=== PATIENT | female | born 1935 | race Caucasian/White ===

== ENCOUNTER 2021-07-01 15:43 | Inpatient (IN) | payer OTHER ==
[2021-07-01 16:07] VITALS: BMI 42.1
[2021-07-01 17:02] LABS: VENOUS BASE EXCESS -6.2 mmol/L (-2-2); VENOUS O2 SATURATION 79.3 % (70-80); VENOUS PCO2 31.8 mmHg (38-52); VENOUS PH 7.375 (7.310-7.410)
[2021-07-01 17:05] LABS: BASO % 0.2 % (0-2.0); EOS % 0.4 % (0-4.5); HEMATOCRIT 17.9 % (32.4-45.2); MCH 31.3 pg (25.7-33.7); MEAN CELL VOLUME 94.8 fl (80-96); MEAN PLT VOLUME 7.6 fl (7.5-11.1); MONO % 3.6 % (3.8-10.2); NEUT % 78.8 % (42.8-82.8); PLATELET COUNT 160 10^3/uL (134-434); RBC 1.89 M/mm3 (3.60-5.2); RDW 17.3 % (11.6-15.6); WHITE BLOOD COUNT 10.5 K/mm3 (4.0-10.0)
[2021-07-01 17:16] LABS: INR 1.21 (0.83-1.09); PROTHROMBIN TIME (PATIENT) 13.9 SEC (9.7-13.0)
[2021-07-01 17:17] LABS: HEMOGLOBIN 5.9 GM/dL (10.7-15.3)
[2021-07-01 17:19] LABS: ACTIVATED PTT 24.3 SECONDS (25.2-36.5)
[2021-07-01 17:26] LABS: ALBUMIN 2.1 g/dl (3.4-5.0); CALCIUM 8.2 mg/dL (8.5-10.1)
[2021-07-01 17:27] LABS: MAGNESIUM 2.1 mg/dL (1.8-2.4)
[2021-07-01 17:31] LABS: BILIRUBIN,TOTAL 0.7 mg/dL (0.2-1)
[2021-07-01 17:40] LABS: BLOOD UREA NITROGEN 40.5 mg/dL (7-18)
[2021-07-01] MEDS ORDERED: POTASSIUM CHLORIDE TABS 20 MEQ TABLET.ER (FP) PO ONE ×2 (18:02→18:08)
[2021-07-01 21:43] LABS: N-TERMINAL BNP 3264.3 pg/ml (5-450)
[2021-07-01] MEDS ORDERED: PANTOPRAZOLE SODIUM 40 MG VIAL IVPUSH ONE (22:53)
[2021-07-01] MEDS ORDERED: PANTOPRAZOLE SODIUM 40 MG VIAL ONE (23:19)
[2021-07-02 08:12] LABS: BASO % 0.1 % (0-2.0); EOS % 0.3 % (0-4.5); HEMATOCRIT 27.8 % (32.4-45.2); HEMOGLOBIN 9.7 GM/dL (10.7-15.3); LYMPH % 15.8 % (8-40); MCH 31.7 pg (25.7-33.7); MEAN CELL VOLUME 90.7 fl (80-96); MEAN PLT VOLUME 7.4 fl (7.5-11.1); MONO % 3.4 % (3.8-10.2); NEUT % 80.4 % (42.8-82.8); PLATELET COUNT 130 10^3/uL (134-434); RBC 3.07 M/mm3 (3.60-5.2); RDW 16.7 % (11.6-15.6)
[2021-07-02 08:19] LABS: INR 1.21 (0.83-1.09)
[2021-07-02 08:22] LABS: ACTIVATED PTT 28.1 SECONDS (25.2-36.5)
[2021-07-02] MEDS ORDERED: FUROSEMIDE 40 MG/4 ML INJECTABLE VIAL IVPUSH ONE (08:34)
[2021-07-02 08:35] LABS: ALBUMIN 1.8 g/dl (3.4-5.0); CALCIUM 7.8 mg/dL (8.5-10.1)
[2021-07-02 08:36] LABS: MAGNESIUM 2.1 mg/dL (1.8-2.4)
[2021-07-02 08:38] LABS: CREATININE 0.9 mg/dL (0.55-1.3)
[2021-07-02 08:39] LABS: BILIRUBIN,TOTAL 0.8 mg/dL (0.2-1); TOT PROT 5.7 g/dl (6.4-8.2)
[2021-07-02] MEDS ORDERED: FUROSEMIDE 40 MG/4 ML INJECTABLE VIAL ONE (08:52)
[2021-07-02] MEDS ORDERED: PANTOPRAZOLE 40 MG TABLET ONE (08:54)
[2021-07-02] MEDS ORDERED: LOSARTAN POTASSIUM 50 MG TABLET ONE (08:54)
[2021-07-02] MEDS ORDERED: HYDROCHLOROTHIAZIDE 12.5 MG CAPSULE (FP) PO SCH (10:00)
[2021-07-02] MEDS ORDERED: PANTOPRAZOLE 40 MG TABLET PO SCH (10:00)
[2021-07-02] MEDS: LOSARTAN POTASSIUM 50 MG TABLET PO SCH (10:24)
[2021-07-02 14:36] LABS: HEMATOCRIT 29.2 % (32.4-45.2); MCH 31.5 pg (25.7-33.7); MCHC 34.2 g/dl (32.0-36.0); MEAN CELL VOLUME 92.1 fl (80-96); MEAN PLT VOLUME 7.4 fl (7.5-11.1); PLATELET COUNT 137 10^3/uL (134-434); RBC 3.17 M/mm3 (3.60-5.2); RDW 17.3 % (11.6-15.6); WHITE BLOOD COUNT 9.7 K/mm3 (4.0-10.0)
[2021-07-02] MEDS ORDERED: PANTOPRAZOLE SODIUM 40 MG VIAL ONE (21:41)
[2021-07-02] MEDS: PANTOPRAZOLE SODIUM 40 MG VIAL IVPUSH SCH (21:54)
[2021-07-02 22:12] LABS: HEMATOCRIT 28.4 % (32.4-45.2); HEMOGLOBIN 9.6 GM/dL (10.7-15.3); MCH 31.2 pg (25.7-33.7); MCHC 33.7 g/dl (32.0-36.0); MEAN CELL VOLUME 92.6 fl (80-96); MEAN PLT VOLUME 7.9 fl (7.5-11.1); PLATELET COUNT 148 10^3/uL (134-434); RBC 3.07 M/mm3 (3.60-5.2); RDW 17.1 % (11.6-15.6); WHITE BLOOD COUNT 9.9 K/mm3 (4.0-10.0)
[2021-07-02] MEDS ORDERED: PANTOPRAZOLE SODIUM 40 MG VIAL IVPUSH ONE (22:53)
[2021-07-03 08:13] LABS: BASO % 0.1 % (0-2.0); EOS % 0.3 % (0-4.5); HEMATOCRIT 27.1 % (32.4-45.2); HEMOGLOBIN 9.3 GM/dL (10.7-15.3); LYMPH % 11.3 % (8-40); MCH 31.3 pg (25.7-33.7); MCHC 34.2 g/dl (32.0-36.0); MEAN CELL VOLUME 91.6 fl (80-96); MEAN PLT VOLUME 7.6 fl (7.5-11.1); MONO % 2.6 % (3.8-10.2); NEUT % 85.7 % (42.8-82.8); PLATELET COUNT 144 10^3/uL (134-434); RBC 2.96 M/mm3 (3.60-5.2); RDW 17.1 % (11.6-15.6)
[2021-07-03] MEDS: LOSARTAN POTASSIUM 50 MG TABLET PO SCH (09:11)
[2021-07-03] MEDS: PANTOPRAZOLE SODIUM 40 MG VIAL IVPUSH SCH ×2 (09:11→21:57)
[2021-07-03] MEDS: KCL 10 MEQ IVPB 10 MEQ/100 ML INFUS.BAG IVPB SCH ×2 (13:44→15:44)
[2021-07-03 14:02] LABS: HEMATOCRIT 27.9 % (32.4-45.2); HEMOGLOBIN 9.7 GM/dL (10.7-15.3); MCH 31.6 pg (25.7-33.7); MCHC 34.6 g/dl (32.0-36.0); MEAN CELL VOLUME 91.3 fl (80-96); MEAN PLT VOLUME 7.1 fl (7.5-11.1); PLATELET COUNT 140 10^3/uL (134-434); RBC 3.06 M/mm3 (3.60-5.2); WHITE BLOOD COUNT 10.8 K/mm3 (4.0-10.0)
[2021-07-04 07:52] LABS: BASO % 0.2 % (0-2.0); EOS % 0.2 % (0-4.5); HEMATOCRIT 27.5 % (32.4-45.2); HEMOGLOBIN 9.6 GM/dL (10.7-15.3); MCH 31.9 pg (25.7-33.7); MCHC 34.7 g/dl (32.0-36.0); MEAN CELL VOLUME 91.7 fl (80-96); MEAN PLT VOLUME 7.5 fl (7.5-11.1); MONO % 2.6 % (3.8-10.2); PLATELET COUNT 125 10^3/uL (134-434); RDW 16.9 % (11.6-15.6); WHITE BLOOD COUNT 10.5 K/mm3 (4.0-10.0)
[2021-07-04 08:14] LABS: ALBUMIN 1.6 g/dl (3.4-5.0); CALCIUM 7.7 mg/dL (8.5-10.1)
[2021-07-04 08:16] LABS: BLOOD UREA NITROGEN 35.3 mg/dL (7-18); MAGNESIUM 1.8 mg/dL (1.8-2.4)
[2021-07-04 08:19] LABS: BILIRUBIN,TOTAL 0.9 mg/dL (0.2-1); PHOSPHOROUS 3.6 mg/dL (2.5-4.9); TOT PROT 5.6 g/dl (6.4-8.2)
[2021-07-04] MEDS: PANTOPRAZOLE SODIUM 40 MG VIAL IVPUSH SCH ×2 (09:38→21:34)
[2021-07-04] MEDS: LOSARTAN POTASSIUM 50 MG TABLET PO SCH (09:38)
[2021-07-04] MEDS ORDERED: POTASSIUM CHLORIDE TABS 20 MEQ TABLET.ER (FP) PO ONE (12:15)
[2021-07-04] MEDS ORDERED: methylPREDNISolone 4 MG TABLET PO ONE (22:00)
[2021-07-05 08:39] LABS: BASO % 0.1 % (0-2.0); EOS % 0.1 % (0-4.5); HEMATOCRIT 29.1 % (32.4-45.2); HEMOGLOBIN 9.6 GM/dL (10.7-15.3); LYMPH % 9.1 % (8-40); MCH 30.8 pg (25.7-33.7); MCHC 33.1 g/dl (32.0-36.0); MEAN CELL VOLUME 93.1 fl (80-96); MEAN PLT VOLUME 7.8 fl (7.5-11.1); MONO % 1.1 % (3.8-10.2); NEUT % 89.6 % (42.8-82.8); PLATELET COUNT 126 10^3/uL (134-434); RBC 3.12 M/mm3 (3.60-5.2); RDW 16.8 % (11.6-15.6); WHITE BLOOD COUNT 11.5 K/mm3 (4.0-10.0)
[2021-07-05 09:00] LABS: BLOOD UREA NITROGEN 38.6 mg/dL (7-18)
[2021-07-05] MEDS ORDERED: methylPREDNISolone 4 MG TABLET PO ONE (09:00)
[2021-07-05 09:01] LABS: ALBUMIN 1.7 g/dl (3.4-5.0)
[2021-07-05 09:05] LABS: BILIRUBIN,TOTAL 0.6 mg/dL (0.2-1)
[2021-07-05 09:07] LABS: CREATININE 1.1 mg/dL (0.55-1.3)
[2021-07-05] MEDS: PANTOPRAZOLE SODIUM 40 MG VIAL IVPUSH SCH ×2 (10:06→22:13)
[2021-07-05] MEDS: LOSARTAN POTASSIUM 50 MG TABLET PO SCH (10:06)
[2021-07-05] MEDS ORDERED: predniSONE 20 MG TABLET (UD) PO ONE (22:00)
[2021-07-06] MEDS ORDERED: predniSONE 20 MG TABLET (UD) PO ONE (04:00)
[2021-07-06 07:03] LABS: BASO % 0.2 % (0-2.0); HEMATOCRIT 26.9 % (32.4-45.2); LYMPH % 8.6 % (8-40); MCH 31.3 pg (25.7-33.7); MCHC 33.5 g/dl (32.0-36.0); MEAN CELL VOLUME 93.4 fl (80-96); MEAN PLT VOLUME 7.8 fl (7.5-11.1); NEUT % 88.2 % (42.8-82.8); PLATELET COUNT 123 10^3/uL (134-434); RBC 2.88 M/mm3 (3.60-5.2); RDW 16.8 % (11.6-15.6); WHITE BLOOD COUNT 8.7 K/mm3 (4.0-10.0)
[2021-07-06 07:19] LABS: CALCIUM 7.7 mg/dL (8.5-10.1)
[2021-07-06 07:20] LABS: ALBUMIN 1.7 g/dl (3.4-5.0); BLOOD UREA NITROGEN 48.4 mg/dL (7-18)
[2021-07-06 07:23] LABS: CREATININE 1.2 mg/dL (0.55-1.3)
[2021-07-06 07:24] LABS: BILIRUBIN,TOTAL 0.2 mg/dL (0.2-1)
[2021-07-06 07:25] LABS: TOT PROT 5.8 g/dl (6.4-8.2)
[2021-07-06] MEDS: predniSONE 20 MG TABLET (UD) PO ONE ×2 (10:39→11:40)
[2021-07-06] MEDS: PANTOPRAZOLE SODIUM 40 MG VIAL IVPUSH SCH ×3 (10:39→22:18)
[2021-07-06] MEDS: LOSARTAN POTASSIUM 50 MG TABLET PO SCH (10:40)
[2021-07-06] MEDS ORDERED: SODIUM CHLORIDE 500 ML IV ONE (14:25)
[2021-07-07 06:39] LABS: HEMATOCRIT 27.4 % (32.4-45.2); HEMOGLOBIN 8.8 GM/dL (10.7-15.3); MCH 30.8 pg (25.7-33.7); MCHC 32.3 g/dl (32.0-36.0); MEAN CELL VOLUME 95.2 fl (80-96); MEAN PLT VOLUME 7.7 fl (7.5-11.1); PLATELET COUNT 125 10^3/uL (134-434); RBC 2.87 M/mm3 (3.60-5.2); WHITE BLOOD COUNT 11.5 K/mm3 (4.0-10.0)
[2021-07-07 06:55] LABS: ALBUMIN 1.8 g/dl (3.4-5.0); BLOOD UREA NITROGEN 57.8 mg/dL (7-18); CALCIUM 7.8 mg/dL (8.5-10.1); MAGNESIUM 2.4 mg/dL (1.8-2.4)
[2021-07-07 06:58] LABS: CREATININE 1.2 mg/dL (0.55-1.3); PHOSPHOROUS 3.3 mg/dL (2.5-4.9)
[2021-07-07 06:59] LABS: TOT PROT 5.8 g/dl (6.4-8.2)
[2021-07-07 07:00] LABS: BILIRUBIN,TOTAL 0.2 mg/dL (0.2-1)
[2021-07-07] MEDS: LOSARTAN POTASSIUM 50 MG TABLET PO SCH (09:26)
[2021-07-07] MEDS: PANTOPRAZOLE SODIUM 40 MG VIAL IVPUSH SCH ×2 (09:26→21:47)
[2021-07-07 10:41] LABS: ANISOCYTOSIS 3+; MACROCYTOSIS 0; OVALOCYTE 2+; TEAR DROP CELLS 1+
[2021-07-07] MEDS ORDERED: SODIUM CHLORIDE 500 ML IV ONE (12:45)
[2021-07-07] MEDS ORDERED: MIDAZOLAM HCL 2 MG/2 ML SINGLE DOSE VIAL IVPUSH ONE (12:45)
[2021-07-08 08:07] LABS: CARCINOEMBRYONIC ANTIGEN 7.4 ng/mL (0.0-4.7)
[2021-07-08] MEDS: PANTOPRAZOLE SODIUM 40 MG VIAL IVPUSH SCH ×2 (10:01→21:34)
[2021-07-08] MEDS: LOSARTAN POTASSIUM 50 MG TABLET PO SCH (10:01)
[2021-07-08 11:45] LABS: HEMATOCRIT 26.1 % (32.4-45.2); HEMOGLOBIN 8.5 GM/dL (10.7-15.3); MCH 30.7 pg (25.7-33.7); MCHC 32.6 g/dl (32.0-36.0); MEAN CELL VOLUME 94.2 fl (80-96); MEAN PLT VOLUME 7.5 fl (7.5-11.1); PLATELET COUNT 104 10^3/uL (134-434); RBC 2.77 M/mm3 (3.60-5.2); RDW 17.7 % (11.6-15.6); WHITE BLOOD COUNT 12.7 K/mm3 (4.0-10.0)
[2021-07-08 12:09] LABS: CALCIUM 7.7 mg/dL (8.5-10.1)
[2021-07-08 12:10] LABS: ALBUMIN 1.6 g/dl (3.4-5.0); BLOOD UREA NITROGEN 64.2 mg/dL (7-18)
[2021-07-08 12:13] LABS: CREATININE 1.2 mg/dL (0.55-1.3)
[2021-07-08 12:14] LABS: BILIRUBIN,TOTAL 0.3 mg/dL (0.2-1); TOT PROT 5.3 g/dl (6.4-8.2)
[2021-07-08] MEDS ORDERED: FAMOTIDINE 20 MG/50 ML IVPB 20 MG/50 ML MG IVPB ONE (23:40)
[2021-07-09 07:01] LABS: HEMATOCRIT 24.4 % (32.4-45.2); MCH 30.6 pg (25.7-33.7); MCHC 32.7 g/dl (32.0-36.0); MEAN CELL VOLUME 93.6 fl (80-96); MEAN PLT VOLUME 7.8 fl (7.5-11.1); PLATELET COUNT 97 10^3/uL (134-434); RBC 2.61 M/mm3 (3.60-5.2); RDW 16.6 % (11.6-15.6); WHITE BLOOD COUNT 11.4 K/mm3 (4.0-10.0)
[2021-07-09 07:31] LABS: CALCIUM 7.7 mg/dL (8.5-10.1)
[2021-07-09 07:32] LABS: BLOOD UREA NITROGEN 63.3 mg/dL (7-18); MAGNESIUM 2.2 mg/dL (1.8-2.4)
[2021-07-09 07:35] LABS: CREATININE 1.2 mg/dL (0.55-1.3); PHOSPHOROUS 3.7 mg/dL (2.5-4.9)
[2021-07-09] MEDS: LOSARTAN POTASSIUM 50 MG TABLET PO SCH (10:04)
[2021-07-09] MEDS: PANTOPRAZOLE SODIUM 40 MG VIAL IVPUSH SCH ×2 (10:05→21:38)
[2021-07-10 08:46] LABS: BASO % 0.1 % (0-2.0); EOS % 0.6 % (0-4.5); HEMATOCRIT 25.6 % (32.4-45.2); HEMOGLOBIN 8.2 GM/dL (10.7-15.3); LYMPH % 10.8 % (8-40); MCH 30.4 pg (25.7-33.7); MEAN CELL VOLUME 95.2 fl (80-96); MEAN PLT VOLUME 8.1 fl (7.5-11.1); MONO % 2.9 % (3.8-10.2); NEUT % 85.6 % (42.8-82.8); PLATELET COUNT 111 10^3/uL (134-434); RBC 2.68 M/mm3 (3.60-5.2); WHITE BLOOD COUNT 11.6 K/mm3 (4.0-10.0)
[2021-07-10 09:05] LABS: ALBUMIN 1.5 g/dl (3.4-5.0); BLOOD UREA NITROGEN 64.7 mg/dL (7-18)
[2021-07-10 09:08] LABS: CREATININE 1.2 mg/dL (0.55-1.3)
[2021-07-10 09:09] LABS: BILIRUBIN,TOTAL 0.7 mg/dL (0.2-1); TOT PROT 5.2 g/dl (6.4-8.2)
[2021-07-10] MEDS: PANTOPRAZOLE SODIUM 40 MG VIAL IVPUSH SCH ×2 (09:11→21:36)
[2021-07-10] MEDS: LOSARTAN POTASSIUM 50 MG TABLET PO SCH (09:12)
[2021-07-10] MEDS ORDERED: ACETAMINOPHEN 1000 MG/100 ML BAG IVPB ONE (20:18)
[2021-07-11] MEDS: PANTOPRAZOLE SODIUM 40 MG VIAL IVPUSH SCH ×2 (09:59→21:52)
[2021-07-11] MEDS: LOSARTAN POTASSIUM 50 MG TABLET PO SCH (09:59)
[2021-07-11] MEDS ORDERED: FUROSEMIDE 40 MG/4 ML INJECTABLE VIAL IVPUSH ONE ×2 (18:03→18:05)
[2021-07-11] MEDS: ACETAMINOPHEN 325 MG TABLET (FP) PO PRN (18:20)
[2021-07-12 07:36] LABS: CALCIUM 7.7 mg/dL (8.5-10.1)
[2021-07-12 07:37] LABS: BLOOD UREA NITROGEN 74.1 mg/dL (7-18)
[2021-07-12 07:46] LABS: HEMATOCRIT 24.7 % (32.4-45.2); MCH 30.6 pg (25.7-33.7); MCHC 32.6 g/dl (32.0-36.0); MEAN PLT VOLUME 8.2 fl (7.5-11.1); PLATELET COUNT 145 10^3/uL (134-434); RBC 2.63 M/mm3 (3.60-5.2); RDW 16.4 % (11.6-15.6)
[2021-07-12] MEDS ORDERED: PIPERACILLIN/TAZOB 3.375 GM 3.375 GM in DEXTROSE 5%-WATER - 50 ML IVPB SCH (10:00)
[2021-07-12] MEDS ORDERED: PIPERACILLIN/TAZOBACTAM 3.375 GM VIAL IVPB ONE (11:54)
[2021-07-12] MEDS: LOSARTAN POTASSIUM 50 MG TABLET PO SCH (12:01)
[2021-07-12] MEDS: PANTOPRAZOLE SODIUM 40 MG VIAL IVPUSH SCH ×2 (12:01→21:00)
[2021-07-12] MEDS ORDERED: cefTRIAXone SODIUM 1 GM VIAL ONE (12:20)
[2021-07-12] MEDS ORDERED: DEXTROSE 5%-WATER - 50 ML IVPB ONE (12:20)
[2021-07-12] MEDS: CEFTRIAXONE 1 GM in DEXTROSE 5%-WATER - 50 ML IVPB SCH (12:21)
[2021-07-12 13:09] LABS: SARS-CoV-2 NAA Not Detected (Not Detected)
[2021-07-12] MEDS ORDERED: SODIUM CHLORIDE 1,000 ML IV SCH (15:15)
[2021-07-12] MEDS ORDERED: SODIUM CHLORIDE 0.45% 1,000 ML IV SCH (15:15)
[2021-07-12] MEDS ORDERED: FUROSEMIDE 40 MG/4 ML INJECTABLE VIAL IVPUSH ONE (18:05)
[2021-07-13 06:27] LABS: BASO % 0.1 % (0-2.0); EOS % 0.6 % (0-4.5); HEMATOCRIT 23.8 % (32.4-45.2); HEMOGLOBIN 7.8 GM/dL (10.7-15.3); LYMPH % 10.6 % (8-40); MCH 30.9 pg (25.7-33.7); MCHC 32.6 g/dl (32.0-36.0); MEAN CELL VOLUME 94.9 fl (80-96); MEAN PLT VOLUME 7.6 fl (7.5-11.1); MONO % 2.8 % (3.8-10.2); NEUT % 85.9 % (42.8-82.8); PLATELET COUNT 129 10^3/uL (134-434); RBC 2.51 M/mm3 (3.60-5.2); WHITE BLOOD COUNT 12.8 K/mm3 (4.0-10.0)
[2021-07-13 06:38] LABS: ALBUMIN 1.3 g/dl (3.4-5.0); CALCIUM 7.8 mg/dL (8.5-10.1)
[2021-07-13 06:39] LABS: BLOOD UREA NITROGEN 90.5 mg/dL (7-18)
[2021-07-13 06:42] LABS: CREATININE 2.4 mg/dL (0.55-1.3)
[2021-07-13 06:43] LABS: BILIRUBIN,TOTAL 0.5 mg/dL (0.2-1); TOT PROT 4.9 g/dl (6.4-8.2)
[2021-07-13] MEDS ORDERED: SODIUM CHLORIDE 250 ML IV STA (07:06)
[2021-07-13 09:59] LABS: EPI CELLS >36 /uL (0-25.1); HYALINE CASTS 12 /uL (0-3.1); PH,URINE 7.5 (5.0-8.0); URINE APPEARANCE TURBID; URINE BACTERIA >9,000 /uL (0-1359); URINE BILIRUBIN NEGATIVE (NEGATIVE); URINE COLOR DK YELLOW; URINE GLUCOSE (UA) NEGATIVE (NEGATIVE); URINE KETONE NEGATIVE (NEGATIVE); URINE LEUK ESTERASE 3+ (NEGATIVE); URINE NITRITE NEGATIVE (NEGATIVE); URINE PROTEIN 3+ (NEGATIVE); URINE UROBILINOGEN 0.2 mg/dL (0.2-1.0); URINE WBC 7617 /uL (0-25.8)
[2021-07-13 10:24] LABS: YEAST NEGATIVE (NEGATIVE)
[2021-07-13] MEDS ORDERED: cefTRIAXone SODIUM 1 GM VIAL ONE (10:54)
[2021-07-13] MEDS ORDERED: DEXTROSE 5%-WATER - 50 ML IVPB ONE (10:54)
[2021-07-13] MEDS: CEFTRIAXONE 1 GM in DEXTROSE 5%-WATER - 50 ML IVPB SCH (11:00)
[2021-07-13] MEDS: PANTOPRAZOLE SODIUM 40 MG VIAL IVPUSH SCH ×2 (11:00→22:27)
[2021-07-13] MEDS: ALBUMIN HUMAN 25% 12.5 GM/50 ML VIAL IV SCH ×3 (12:26→18:32)
[2021-07-13] MEDS: SODIUM BICARBONATE 650 MG TABLET PO SCH ×2 (14:01→22:32)
[2021-07-13 15:08] LABS: CREATININE, URINE RANDOM < 13.0 mg/dL (30-150)
[2021-07-14] MEDS ORDERED: SODIUM CHLORIDE 250 ML IV STA (01:17)
[2021-07-14] MEDS: SODIUM BICARBONATE 650 MG TABLET PO SCH ×3 (05:36→22:13)
[2021-07-14] MEDS ORDERED: DEXTROSE 5%-WATER - 50 ML IVPB ONE (09:07)
[2021-07-14] MEDS ORDERED: cefTRIAXone SODIUM 1 GM VIAL ONE (09:07)
[2021-07-14] MEDS: CEFTRIAXONE 1 GM in DEXTROSE 5%-WATER - 50 ML IVPB SCH (09:20)
[2021-07-14] MEDS: PANTOPRAZOLE SODIUM 40 MG VIAL IVPUSH SCH ×2 (09:20→22:13)
[2021-07-14 12:33] LABS: BASO % 0.1 % (0-2.0); EOS % 0.5 % (0-4.5); HEMATOCRIT 21.5 % (32.4-45.2); LYMPH % 8.3 % (8-40); MCH 30.6 pg (25.7-33.7); MCHC 32.4 g/dl (32.0-36.0); MEAN CELL VOLUME 94.4 fl (80-96); MEAN PLT VOLUME 7.5 fl (7.5-11.1); MONO % 2.3 % (3.8-10.2); NEUT % 88.8 % (42.8-82.8); PLATELET COUNT 126 10^3/uL (134-434); RBC 2.28 M/mm3 (3.60-5.2); RDW 16.4 % (11.6-15.6); WHITE BLOOD COUNT 9.8 K/mm3 (4.0-10.0)
[2021-07-14 13:01] LABS: ALBUMIN 1.2 g/dl (3.4-5.0); CALCIUM 7.7 mg/dL (8.5-10.1); MAGNESIUM 2.2 mg/dL (1.8-2.4)
[2021-07-14 13:02] LABS: BLOOD UREA NITROGEN 93.8 mg/dL (7-18)
[2021-07-14 13:04] LABS: CREATININE 2.7 mg/dL (0.55-1.3); PHOSPHOROUS 7.9 mg/dL (2.5-4.9)
[2021-07-14 13:06] LABS: BILIRUBIN,TOTAL 0.5 mg/dL (0.2-1)
[2021-07-14] MEDS ORDERED: SODIUM CHLORIDE 1,000 ML IV SCH (15:30)
[2021-07-14] MEDS ORDERED: predniSONE 20 MG TABLET (UD) PO ONE (22:00)
[2021-07-15] MEDS ORDERED: predniSONE 20 MG TABLET (UD) PO ONE ×2 (04:00→10:00)
[2021-07-15] MEDS: SODIUM BICARBONATE 650 MG TABLET PO SCH ×3 (05:07→22:18)
[2021-07-15] MEDS: PANTOPRAZOLE SODIUM 40 MG VIAL IVPUSH SCH ×2 (10:07→22:17)
[2021-07-15] MEDS ORDERED: cefTRIAXone SODIUM 1 GM VIAL ONE (10:58)
[2021-07-15] MEDS ORDERED: DEXTROSE 5%-WATER - 50 ML IVPB ONE (10:58)
[2021-07-15] MEDS: CEFTRIAXONE 1 GM in DEXTROSE 5%-WATER - 50 ML IVPB SCH (10:59)
[2021-07-15] MEDS ORDERED: SODIUM CHLORIDE 500 ML IV SCH (13:00)
[2021-07-15 18:58] LABS: HEMATOCRIT 21.1 % (32.4-45.2); MCH 31.2 pg (25.7-33.7); MEAN CELL VOLUME 97.7 fl (80-96); MEAN PLT VOLUME 7.8 fl (7.5-11.1); PLATELET COUNT 64 10^3/uL (134-434); RBC 2.16 M/mm3 (3.60-5.2); RDW 16.9 % (11.6-15.6); WHITE BLOOD COUNT 7.6 K/mm3 (4.0-10.0)
[2021-07-15 19:03] LABS: HEMOGLOBIN 6.7 GM/dL (10.7-15.3)
[2021-07-16] MEDS: SODIUM BICARBONATE 650 MG TABLET PO SCH ×3 (06:10→21:06)
[2021-07-16] MEDS ORDERED: DEXTROSE 5%-WATER - 50 ML IVPB ONE (09:05)
[2021-07-16] MEDS ORDERED: cefTRIAXone SODIUM 1 GM VIAL ONE (09:05)
[2021-07-16] MEDS: CEFTRIAXONE 1 GM in DEXTROSE 5%-WATER - 50 ML IVPB SCH (09:20)
[2021-07-16] MEDS: PANTOPRAZOLE SODIUM 40 MG VIAL IVPUSH SCH ×2 (09:20→21:05)
[2021-07-16 12:41] LABS: HEMATOCRIT 28.7 % (32.4-45.2); HEMOGLOBIN 9.5 GM/dL (10.7-15.3); MCH 31.4 pg (25.7-33.7); MCHC 32.9 g/dl (32.0-36.0); MEAN CELL VOLUME 95.4 fl (80-96); MONO % 2.3 % (3.8-10.2); NEUT % 88.7 % (42.8-82.8); PLATELET COUNT 125 10^3/uL (134-434); RBC 3.01 M/mm3 (3.60-5.2); WHITE BLOOD COUNT 7.9 K/mm3 (4.0-10.0)
[2021-07-16 12:59] LABS: CHLORIDE 108 mmol/L (98-107); SODIUM 136 mmol/L (136-145)
[2021-07-16 13:01] LABS: CALCIUM 7.8 mg/dL (8.5-10.1)
[2021-07-16 13:02] LABS: ANION GAP 15 MMOL/L (8-16); CO2 13 mmol/L (21-32); GLUCOSE,RANDOM 194 mg/dL (74-106)
[2021-07-16 13:05] LABS: CREATININE 2.9 mg/dL (0.55-1.3); SGOT/AST 13 U/L (15-37); SGPT/ALT 9 U/L (13-61)
[2021-07-16 13:06] LABS: BILIRUBIN,TOTAL 0.3 mg/dL (0.2-1)
[2021-07-16 13:07] LABS: TOT PROT 5.8 g/dl (6.4-8.2)
[2021-07-16 13:08] LABS: ALK PHOS 97 U/L (45-117)
[2021-07-16 13:30] LABS: ALBUMIN 1.5 g/dl (3.4-5.0); BLOOD UREA NITROGEN 114.3 mg/dL (7-18)
[2021-07-16] MEDS: SODIUM ZIRCONIUM CYCLOSILICATE (LOKELMA) 5 GM PACKET PO SCH (21:05)
[2021-07-16] MEDS: ACETAMINOPHEN 325 MG TABLET (FP) PO PRN (21:07)
[2021-07-17] MEDS: SODIUM BICARBONATE 650 MG TABLET PO SCH ×3 (06:09→21:47)
[2021-07-17 06:50] LABS: BASO % 0.3 % (0-2.0); EOS % 0.1 % (0-4.5); HEMATOCRIT 24.9 % (32.4-45.2); HEMOGLOBIN 8.3 GM/dL (10.7-15.3); LYMPH % 12.4 % (8-40); MCH 31.4 pg (25.7-33.7); MCHC 33.4 g/dl (32.0-36.0); MEAN CELL VOLUME 94.1 fl (80-96); MEAN PLT VOLUME 7.7 fl (7.5-11.1); MONO % 3.4 % (3.8-10.2); NEUT % 83.8 % (42.8-82.8); PLATELET COUNT 103 10^3/uL (134-434); RBC 2.65 M/mm3 (3.60-5.2); RDW 15.7 % (11.6-15.6); WHITE BLOOD COUNT 7.8 K/mm3 (4.0-10.0)
[2021-07-17 07:06] LABS: CHLORIDE 110 mmol/L (98-107); SODIUM 138 mmol/L (136-145)
[2021-07-17 07:10] LABS: CALCIUM 7.5 mg/dL (8.5-10.1)
[2021-07-17 07:11] LABS: ALBUMIN 1.5 g/dl (3.4-5.0); ANION GAP 13 MMOL/L (8-16); CO2 15 mmol/L (21-32); GLUCOSE,RANDOM 124 mg/dL (74-106)
[2021-07-17 07:14] LABS: CREATININE 2.8 mg/dL (0.55-1.3); SGOT/AST 12 U/L (15-37); SGPT/ALT 9 U/L (13-61)
[2021-07-17 07:16] LABS: BILIRUBIN,TOTAL 0.3 mg/dL (0.2-1); TOT PROT 5.4 g/dl (6.4-8.2)
[2021-07-17 07:17] LABS: ALK PHOS 87 U/L (45-117)
[2021-07-17 07:18] LABS: BLOOD UREA NITROGEN 127.9 mg/dL (7-18)
[2021-07-17] MEDS ORDERED: DEXTROSE 5%-WATER - 50 ML IVPB ONE (10:01)
[2021-07-17] MEDS ORDERED: cefTRIAXone SODIUM 1 GM VIAL ONE (10:01)
[2021-07-17] MEDS: CEFTRIAXONE 1 GM in DEXTROSE 5%-WATER - 50 ML IVPB SCH (10:04)
[2021-07-17] MEDS: SODIUM ZIRCONIUM CYCLOSILICATE (LOKELMA) 5 GM PACKET PO SCH (10:04)
[2021-07-17] MEDS: PANTOPRAZOLE SODIUM 40 MG VIAL IVPUSH SCH ×2 (10:04→21:47)
[2021-07-17] MEDS ORDERED: SODIUM BICARBONATE 8.4% 50 MEQ/50 ML VIAL IVPUSH ONE (11:45)
[2021-07-17] MEDS ORDERED: DEXTROSE 5%-WATER - 1,000 ML IV SCH (11:45)
[2021-07-17] MEDS: ACETAMINOPHEN 325 MG TABLET (FP) PO PRN (18:28)
[2021-07-18] MEDS: SODIUM BICARBONATE 650 MG TABLET PO SCH ×3 (05:24→22:59)
[2021-07-18] MEDS: ACETAMINOPHEN 325 MG TABLET (FP) PO PRN ×2 (06:26→14:16)
[2021-07-18 09:01] LABS: CHLORIDE 109 mmol/L (98-107); SODIUM 138 mmol/L (136-145)
[2021-07-18 09:08] LABS: CALCIUM 7.8 mg/dL (8.5-10.1)
[2021-07-18 09:09] LABS: ALBUMIN 1.7 g/dl (3.4-5.0); ANION GAP 11 MMOL/L (8-16); CO2 17 mmol/L (21-32); GLUCOSE,RANDOM 144 mg/dL (74-106); SGPT/ALT 10 U/L (13-61)
[2021-07-18 09:10] LABS: CREATININE 2.3 mg/dL (0.55-1.3)
[2021-07-18 09:11] LABS: BILIRUBIN,TOTAL 0.3 mg/dL (0.2-1); TOT PROT 5.3 g/dl (6.4-8.2)
[2021-07-18 09:12] LABS: ALK PHOS 90 U/L (45-117); BLOOD UREA NITROGEN 124.2 mg/dL (7-18); SGOT/AST 17 U/L (15-37)
[2021-07-18] MEDS ORDERED: cefTRIAXone SODIUM 1 GM VIAL ONE (10:26)
[2021-07-18] MEDS ORDERED: DEXTROSE 5%-WATER - 50 ML IVPB ONE (10:26)
[2021-07-18] MEDS: CEFTRIAXONE 1 GM in DEXTROSE 5%-WATER - 50 ML IVPB SCH (10:34)
[2021-07-18] MEDS: PANTOPRAZOLE SODIUM 40 MG VIAL IVPUSH SCH ×2 (10:34→22:59)
[2021-07-18] MEDS: SODIUM ZIRCONIUM CYCLOSILICATE (LOKELMA) 5 GM PACKET PO SCH (10:34)
[2021-07-18] MEDS ORDERED: ALBUMIN HUMAN 25% 12.5 GM/50 ML VIAL IV ONE (11:45)
[2021-07-18] MEDS ORDERED: DEXTROSE 5%-WATER - 1,000 ML IV SCH (11:45)
[2021-07-18 12:07] LABS: ANTIGLOMERULAR BASEMENT MEN.AB 3 units (0-20)
[2021-07-19 05:11] LABS: FIBROSIS SCORE. 0.12 (0.00-0.21); HCV ALPHA 2 MACRO CHART 93 mg/dL (110-276); NECRO.INFLAM ACT.SCORE 0.01 (0.00-0.17); NECROINFLAM. ACTIVITY GRADE A0-No activity (.)
[2021-07-19] MEDS: SODIUM BICARBONATE 650 MG TABLET PO SCH ×2 (06:11→15:04)
[2021-07-19 08:49] LABS: BASO % 0.1 % (0-2.0); EOS % 0.6 % (0-4.5); HEMATOCRIT 25.8 % (32.4-45.2); HEMOGLOBIN 8.6 GM/dL (10.7-15.3); LYMPH % 10.7 % (8-40); MCH 31.3 pg (25.7-33.7); MCHC 33.2 g/dl (32.0-36.0); MEAN CELL VOLUME 94.4 fl (80-96); MEAN PLT VOLUME 8.1 fl (7.5-11.1); MONO % 2.2 % (3.8-10.2); NEUT % 86.4 % (42.8-82.8); PLATELET COUNT 79 10^3/uL (134-434); RBC 2.73 M/mm3 (3.60-5.2); RDW 16.3 % (11.6-15.6); WHITE BLOOD COUNT 9.3 K/mm3 (4.0-10.0)
[2021-07-19 09:08] LABS: CHLORIDE 107 mmol/L (98-107); SODIUM 139 mmol/L (136-145)
[2021-07-19 09:17] LABS: CALCIUM 7.8 mg/dL (8.5-10.1)
[2021-07-19 09:18] LABS: ALBUMIN 1.7 g/dl (3.4-5.0); ANION GAP 13 MMOL/L (8-16); CO2 19 mmol/L (21-32); GLUCOSE,RANDOM 175 mg/dL (74-106)
[2021-07-19 09:21] LABS: SGOT/AST 16 U/L (15-37); SGPT/ALT 9 U/L (13-61)
[2021-07-19 09:22] LABS: BILIRUBIN,TOTAL 0.4 mg/dL (0.2-1)
[2021-07-19 09:23] LABS: TOT PROT 5.5 g/dl (6.4-8.2)
[2021-07-19 09:24] LABS: ALK PHOS 92 U/L (45-117)
[2021-07-19 09:31] LABS: BLOOD UREA NITROGEN 106.1 mg/dL (7-18)
[2021-07-19] MEDS ORDERED: DEXTROSE 5%-WATER - 50 ML IVPB ONE (09:49)
[2021-07-19] MEDS ORDERED: cefTRIAXone SODIUM 1 GM VIAL ONE (09:49)
[2021-07-19] MEDS: PANTOPRAZOLE SODIUM 40 MG VIAL IVPUSH SCH (10:38)
[2021-07-19] MEDS: SODIUM ZIRCONIUM CYCLOSILICATE (LOKELMA) 5 GM PACKET PO SCH (10:38)
[2021-07-19] MEDS: CEFTRIAXONE 1 GM in DEXTROSE 5%-WATER - 50 ML IVPB SCH (10:39)
[2021-07-19 14:31] VITALS: BP 138/69; PULSE 71; TEMP 97.4
[2021-07-19 18:09] LABS: ATYPICAL pANCA <1:20 titer (Neg:<1:20); C-ANCA <1:20 titer (Neg:<1:20)
== END 2021-07-19 20:11 | disposition short-term general hospital (02) | DRG 436 ==
LOC: JER 15:43 → JERBED 17:43 → OBSVTOIN 22:44 → J4S 07-02 23:52
PROVIDERS: ADMIT Hospitalist; ATTEND Internal Medicine
PROC: 30233N1 Transfusion of Nonautologous Red Blood Cells into Peripheral Vein, Percutaneous Approach (ICD-10-PCS; 2021-07-01)
PROC: 06H03DZ Insertion of Intraluminal Device into Inferior Vena Cava, Percutaneous Approach (ICD-10-PCS; principal; 2021-07-06)
PROC: 0FB13ZX Excision of Right Lobe Liver, Percutaneous Approach, Diagnostic (ICD-10-PCS; 2021-07-07)
PROC: 0T9130Z Drainage of Left Kidney with Drainage Device, Percutaneous Approach (ICD-10-PCS; 2021-07-15)
PROC: 0T913ZZ Drainage of Left Kidney, Percutaneous Approach (ICD-10-PCS; 2021-07-15)
PROC: BT02ZZZ Plain Radiography of Left Kidney (ICD-10-PCS; 2021-07-15)
DX: C78.7 Secondary malignant neoplasm of liver and intrahepatic bile duct (principal); K92.2 Gastrointestinal hemorrhage, unspecified; N82.3 Fistula of vagina to large intestine; I82.501 Chronic embolism and thrombosis of unspecified deep veins of right lower extremity; M60.08 Infective myositis, other site; Z68.41 Body mass index [BMI] 40.0-44.9, adult; L02.214 Cutaneous abscess of groin; N13.6 Pyonephrosis; N17.9 Acute kidney failure, unspecified; E66.01 Morbid (severe) obesity due to excess calories; I10 Essential (primary) hypertension; C55 Malignant neoplasm of uterus, part unspecified; E11.9 Type 2 diabetes mellitus without complications; N28.1 Cyst of kidney, acquired; R16.1 Splenomegaly, not elsewhere classified; K43.9 Ventral hernia without obstruction or gangrene; E87.5 Hyperkalemia; E88.09 Other disorders of plasma-protein metabolism, not elsewhere classified; R33.9 Retention of urine, unspecified; D50.9 Iron deficiency anemia, unspecified; E87.6 Hypokalemia; F41.8 Other specified anxiety disorders; Z95.2 Presence of prosthetic heart valve
CPT/HCPCS: 36415; 36430; 36511; 37191; 50390; 50432; 71045-TC-FY; 74176-TC; 74178-TC; 76775-TC; 76942-TC; 80048; 80051; 80053; 81003; 82172; 82272; 82378; 82436; 82570; 82728; 82803; 82977; 83010; 83036; 83516; 83520; 83540; 83550; 83735; 83880; 83883; 84100; 84133; 84155; 84156; 84165; 84300; 84443; 84460; 84484; 85025; 85027; 85610; 85730; 86038; 86225; 86256; 86304; 86850; 86900; 86901; 86922; 87045; 87046; 87070; 87075; 87086; 87102; 87116; 87186; 87205; 87206; 87210; 87324; 87340; 87449; 87517; 87899; 88108; 88305-TC; 88341-TC; 93005; 93010; 93306-TC; 93970-TC; 94010; 97116-GP; 97161-GP; 99285-25; C9803-CS; G0378; P9038; P9047; P9058; Q9967; U0003; U0005